=== PATIENT | female | born 1945 ===

== ENCOUNTER 2024-02-02 06:15 | Day surgery (SDC) | payer OTHER ==
[2024-01-26 08:48] LABS: PH,URINE 5.5 (5.0-8.0); URINE APPEARANCE Clear; URINE BILIRRUBIN Negative (NEGATIVE); URINE BLOOD Negative; URINE COLOR Yellow; URINE GLUCOSE Negative (NEGATIVE); URINE KETONE Negative (NEGATIVE); URINE LEUKOCYTE Moderate; URINE NITRATE Negative; URINE PROTEIN Negative (NEGATIVE); URINE UROBILINOGEN 0.2 E.U./dl
[2024-01-26 08:49] LABS: URINE BACTERIA 492.5 uL (0.0-1933); URINE EPITHELIAL CELLS 42.9 uL (0.0-38.8); URINE RBC 2.1 uL (0.0-20.8); URINE WBC 74.9 uL (0.0-23.2)
[2024-01-26 08:49] LABS: HEMATOCRIT 37.5 % (36.0-45.00); HEMOGLOBIN 12.6 g/dL (12.0-15.00); MEAN CELL VOLUME 87.5 fL (80.00-100.00); MEAN CORPUSCULAR HEMOGLOBIN 29.4 pg (27.00-32.0); MEAN CORPUSCULAR HGB CONC 33.6 g/dl (32.0-36.0); PLATELET COUNT 323 K/uL (150-450); RED BLOOD COUNT 4.29 M/uL (4.00-6.00); RED CELL DISTRIBUTION WIDTH 13.3 % (11.5-14.5)
[2024-01-26 09:20] LABS: INR 1.07; PROTHROMBIN TIME 11.6 SECONDS (9.0-11.5)
[2024-01-26 09:47] LABS: ALBUMIN 4.1 gm/dL (3.4-5.0); BILIRUBIN TOTAL 0.95 mg/dL (0.3-1.2); CALCIUM 9.9 mg/dL (8.5-10.1); CREATININE SERUM 1.29 mg/dL (0.55-1.02); GFR 40.18; GLOBULINA 3.3 G/DL (2.4-3.5); POTASSIUM 5.09 mEq/L (3.5-5.1); TOTAL PROTEIN 7.4 gm/dL (6.4-8.2)
[2024-01-26 09:57] LABS: TSH 0.342 uIU/mL (0.358-3.74)
[~2024-02-02 06:15] MED LIST: CANDESARTAN CILE8 MG PO; HYDRALAZINE HCL25 MG PO
[2024-02-02] MEDS ORDERED: CEFOXITIN SODIUM 2,000 MG VIAL IV ONE (07:50)
[2024-02-02] MEDS ORDERED: POVIDONE-IODINE 118 ML BOTT TOP ONE (08:44)
[2024-02-02] MEDS ORDERED: TRAM1TAB98 PO (10:10)
[2024-02-02] MEDS ORDERED: MORGIDOX100 MG PO (10:10)
[2024-02-02] MEDS ORDERED: PROMETHAZINE HCL 50 MG/ML AMPUL IM ONE (10:15)
[2024-02-02] MEDS ORDERED: MORPHINE SULFATE 4 MG/ML VIAL IV PRN (10:15)
== END 2024-02-02 14:40 | disposition home or self-care (01) ==
LOC: CIR.AMB 06:15
PROVIDERS: ATTEND Obstetrics & Gynecology
DX: D25.0 Submucous leiomyoma of uterus (principal); N84.0 Polyp of corpus uteri; N84.1 Polyp of cervix uteri; N95.0 Postmenopausal bleeding; Z88.6 Allergy status to analgesic agent; Z88.5 Allergy status to narcotic agent; I10 Essential (primary) hypertension